=== PATIENT | female | born 1995 | race Caucasian/White ===

== ENCOUNTER 2019-02-16 23:21 | Emergency (ER) | payer OTHER ==
[2019-02-17 00:09] VITALS: BMI 25.3
--- NOTE | 2019-02-17 00:27 | PDOC ---
History of Present Illness - General Chief Complaint: Chest Pain Stated Complaint: CHEST PAIN Time Seen by Provider: 02/17/19 00:25 History Source: Patient - History of Present Illness Initial Comments: 02/17/19 01:56 23 year old female c/o headache , left ear pain reports that she has been having vaginal bleeding for the last 12 days. patient reports some cramping. lmp 01/13 Past History - Past Medical History Allergies/Adverse Reactions: Allergies Allergy/AdvReac Type Severity Reaction Status Date / Time No Known Allergies Allergy Verified 02/17/19 00:09 - Suicide/Smoking/Psychosocial Hx Smoking History: Never smoked Have you smoked in the past 12 months: No Hx Alcohol Use: No Drug/Substance Use Hx: No Review of Systems - Review of Systems Able to Perform ROS?: Yes Is the patient limited Kyr[place]z proficient: No Constitutional: No: Symptoms Reported, See HPI, Chills, Diaphoresis, Fever, Loss of Appetite, Malaise, Night Sweats, Weakness, Weight Stable, Unintentional Wgt. Loss, Unexplained wgt Loss, Other *Physical Exam - Vital Signs Last Vital Signs Temp Pulse Resp BP Pulse Ox 98.4 F 93 H 19 103/63 100 02/17/19 00:02 02/17/19 00:02 02/17/19 00:02 02/17/19 00:02 02/17/19 00:02 - Physical Exam General Appearance: Yes: Appropriately Dressed Respiratory/Chest: positive: Lungs Clear, Normal Breath Sounds. negative: Chest Tender Cardiovascular: positive: Regular Rhythm, Regular Rate Gastrointestinal/Abdominal: positive: Normal Bowel Sounds, Soft. negative: Tender Musculoskeletal: positive: Normal Inspection Integumentary: positive: Normal Color, Dry, Warm Neurologic: positive: Fully Oriented, Alert, Normal Mood/Affect ED Treatment Course - LABORATORY CBC & Chemistry Diagram: 02/17/19 02:19 - ADDITIONAL ORDERS Additional order review: Laboratory Results 02/17/19 02/17/19 02/17/19 02:19 02:19 01:12 Beta HCG, Quant 17.9 Urine HCG, Qual Positive Blood Type B POSITIVE Antibody Screen Negative 02/17/19 02:19 RBC 4.07 MCV 98.6 H MCHC 33.7 RDW 11.8 MPV 8.7 Neutrophils % 49.3 Lymphocytes % 41.7 H Monocytes % 6.0 Eosinophils % 2.3 Basophils % 0.7 - RADIOLOGY Radiology Studies Ordered: Category Date Time Status CHEST PA & LAT [RAD] Stat Radiology 02/17/19 00:42 Ordered Medical Decision Making - Medical Decision Making 02/17/19 03:02 A: urine + cbc beta hcg type and screen *DC/Admit/Observation/Transfer Diagnosis at time of Disposition: Positive urine test, Chest wall discomfort - Discharge Dispostion Disposition: HOME Condition at time of disposition: Fair - Referrals Referrals: Ilana Madrigal MD [Staff Physician] - Call tomorrow Swapnil Moon MD [Staff Physician] - Call tomorrow - Patient Instructions Printed Discharge Instructions: Vaginal Bleeding During Additional Instructions: return to the ER if you are soaking 2 pads per hour, severe abdominal pain, or worsening symptoms. Please follow-up with a community engagement representative as soon as possible for repeat beta hCG levels. your beta hCG level today 17. - Post Discharge Activity Forms/Work/School Notes: Back to Work
--- NOTE | 2019-02-17 02:11 | PDOC ---
*Physical Exam - Vital Signs Last Vital Signs Temp Pulse Resp BP Pulse Ox 98.4 F 93 H 19 103/63 100 02/17/19 00:02 02/17/19 00:02 02/17/19 00:02 02/17/19 00:02 02/17/19 00:02 ED Treatment Course - ADDITIONAL ORDERS Additional order review: Laboratory Results 02/17/19 01:12 Urine HCG, Qual Positive *DC/Admit/Observation/Transfer Diagnosis at time of Disposition: Positive urine test - Discharge Dispostion Condition at time of disposition: Fair - Referrals - Patient Instructions - Post Discharge Activity
[2019-02-17 02:33] LABS: BASO % 0.7 % (0-2.0); EOS % 2.3 % (0-4.5); HEMATOCRIT 40.2 % (32.4-45.2); HEMOGLOBIN 13.5 GM/dL (10.7-15.3); LYMPH % 41.7 % (8-40); MCH 33.2 pg (25.7-33.7); MCHC 33.7 g/dl (32.0-36.0); MEAN CELL VOLUME 98.6 fl (80-96); MEAN PLT VOLUME 8.7 fl (7.5-11.1); NEUT % 49.3 % (42.8-82.8); PLATELET COUNT 316 K/MM3 (134-434); RBC 4.07 M/mm3 (3.60-5.2); RDW 11.8 % (11.6-15.6); WHITE BLOOD COUNT 12.4 K/mm3 (4.0-10.0)
[2019-02-17] MEDS ORDERED: MAG HYDROX/AL HYDROX/SIMETH 30 ML UNIT-DOSE CUP PO ONE (03:37)
[2019-02-17] MEDS ORDERED: MAG HYDROX/AL HYDROX/SIMETH 30 ML UNIT-DOSE CUP ONE (03:54)
[2019-02-17 04:27] VITALS: BP 100/65; PULSE 80; TEMP 98.8
--- NOTE | 2019-02-17 10:20 | EKG ---
Test Reason : Blood Pressure : / mmHG Vent. Rate : 083 BPM Atrial Rate : 083 BPM P-R Int : 126 ms QRS Dur : 082 ms QT Int : 376 ms P-R-T Axes : 042 061 048 degrees QTc Int : 441 ms NORMAL SINUS RHYTHM WITH SINUS ARRHYTHMIA NORMAL ECG NO PREVIOUS ECGS AVAILABLE Confirmed by JOHANNE OLIVARES, NAOMI ([id number]) on 02/17/2019 10:20:03 AM Referred By: Confirmed By:NAOMI WHITING MD
== END 2019-02-17 04:00 | disposition home or self-care (01) ==
LOC: JER 23:21
DX: O26.891 Other specified pregnancy related conditions, first trimester (principal); O20.8 Other hemorrhage in early pregnancy; R07.9 Chest pain, unspecified; Z3A.00 Weeks of gestation of pregnancy not specified
CPT/HCPCS: 36415; 76817-TC; 84702; 84703; 85025; 86850; 86900; 86901; 93005; 93010; 99283-25